=== PATIENT | female | born 1970 | race Hispanic/Latino ===

== ENCOUNTER 2023-08-25 05:57 | Day surgery (SDC) | payer MEDICAID ==
[~2023-08-25] VITALS: Ht 149.9 cm; Wt 79.7 kg
[2023-08-25] VITALS (11 sets, daily range): BP systolic 94–110; BP diastolic 55–74; PULSE 66–83; RESP 15–22
[~2023-08-25 05:57] MED LIST: ALPR2TAB2 PO; AMOX1TAB16 PO; CODE118L3 PO; DIVA500T2 PO; DULO20 PO; ESOM20CA31 PO; METH4TAB15 PO; OSEL75 PO; TYL3 PO
[2023-08-25] MEDS ORDERED: 0.9%NACL 1000ML 1,000 ML IV ONE (06:16)
[2023-08-25] MEDS ORDERED: OMEP40CA21 PO (06:57)
[2023-08-25] MEDS ORDERED: PROPOFOL 10 MG/ML 20ML VIAL IV ONE (08:19)
[2023-08-25] MEDS ORDERED: ONDANSETRON 4MG INJ ONE (09:01)
== END 2023-08-25 10:00 | disposition home or self-care (01) ==
LOC: DAH 05:57 → ENDO 05:57 → EDSTATUS 15:45
PROVIDERS: ATTEND Internal Medicine
DX: K59.00 Constipation, unspecified (principal); R10.13 Epigastric pain; R14.0 Abdominal distension (gaseous); K57.30 Diverticulosis of large intestine without perforation or abscess without bleeding; K64.1 Second degree hemorrhoids; K64.4 Residual hemorrhoidal skin tags; K92.1 Melena; K44.9 Diaphragmatic hernia without obstruction or gangrene; K22.2 Esophageal obstruction; K31.89 Other diseases of stomach and duodenum; F17.200 Nicotine dependence, unspecified, uncomplicated; F41.9 Anxiety disorder, unspecified; F32.A Depression, unspecified; E78.5 Hyperlipidemia, unspecified; Z79.899 Other long term (current) drug therapy; Z79.01 Long term (current) use of anticoagulants; Z90.710 Acquired absence of both cervix and uterus; Z90.49 Acquired absence of other specified parts of digestive tract
CPT/HCPCS: 43239; 45378; J7030 ×3; J3490; J2405; A4620 ×2; A4215 ×4; A4223 ×2; A7002 ×2; A4222 ×2; A4221 ×2; A4663 ×2; A4216 ×2; A4606 ×2; J2704

== ENCOUNTER 2023-12-21 13:15 | Emergency (ER) | payer MEDICAID ==
[~2023-12-21] VITALS: Ht 152.4 cm; Wt 77.1 kg
[~2023-12-21 13:15] MED LIST changes: -AMOX1TAB16 PO; -CODE118L3 PO; -DIVA500T2 PO; -DULO20 PO; -ESOM20CA31 PO; -METH4TAB15 PO; +OMEP40CA21 PO; -OSEL75 PO; -TYL3 PO
[2023-12-21] MEDS: ONDANSETRON ODT 4MG TAB SL ONE (15:28)
[2023-12-21] MEDS: ACETAMINOPHEN WITH CODEINE 1 TAB TAB PO ONE (15:28)
[2023-12-21 15:33] VITALS: BP 154/82; PULSE 85; RESP 16; O2SAT 97
== END 2023-12-21 15:39 | disposition home or self-care (01) ==
LOC: EDH 13:15
DX: S00.03XA Contusion of scalp, initial encounter (principal); E78.00 Pure hypercholesterolemia, unspecified; Z90.49 Acquired absence of other specified parts of digestive tract; Z79.899 Other long term (current) drug therapy; Z90.710 Acquired absence of both cervix and uterus; Z98.890 Other specified postprocedural states; W01.0XXA Fall on same level from slipping, tripping and stumbling without subsequent striking against object, initial encounter; Y93.89 Activity, other specified; Y92.89 Other specified places as the place of occurrence of the external cause; Y99.8 Other external cause status
CPT/HCPCS: 70450

== ENCOUNTER 2024-12-18 13:15 | Emergency (ER) | payer MEDICAID ==
[~2024-12-18] VITALS: Ht 149.9 cm; Wt 68.9 kg
[2024-12-18] MEDS: ORPHENADRINE 60MG/2ML IM ONE (14:54)
[2024-12-18] MEDS: ketOROlac 15MG/ML VIAL (15MG/ML) IM ONE (14:54)
--- NOTE | 2024-12-18 15:03 | EKG ---
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
--- NOTE | 2024-12-18 15:27 | HMCIMG ---
RIBS UNI RT W PA CHEST 3+ VWS REASON: FALL. COMPARISON: None TECHNIQUE: Frontal projection of the chest was obtained. 4 images of the right ribs were obtained. FINDINGS: No acute pulmonary infiltrates is seen. The heart is borderline in size. Postcholecystectomy changes are seen. No acute displaced fracture is seen. Costal cartilage calcifications are seen. Degenerative changes are seen. IMPRESSION: Findings as described above.
--- NOTE | 2024-12-18 15:36 | ERN ---
General Chief Complaint: Rib Pain Stated Complaint: RT RIB PAIN Time Seen by MD: 13:18 Source: patient History of Present Illness Initial Comments PATIENT IS A 54-YEAR-OLD FEMALE COMING IN AFTER SHE FELL DOWN AND HIT HERSELF IN HIS RIGHT SIDE OF THE CHEST REGION. SHE STATES THAT SHE HAS BEEN HAVING RIGHT BREAST AND RIGHT CHEST TENDERNESS ON PALPATION INCREASES WITH MOVEMENT. Allergies: Coded Allergies: No Known Allergies (Unverified Allergy, Unknown, 11/08/16) Home Meds Reported Medications Omeprazole (Omeprazole) 40 Mg Capsule.dr, 40 MG PO DAILY, CAP 08/25/23 Alprazolam (Xanax) 2 Mg Tablet, 2 MG PO HS, TAB 07/04/17 Past Medical History Past Medical History: Bipolar, Depression, High Cholesterol Past Surgical History: Hysterectomy, Cholecystectomy Social History Social History: Negative ROS Dictation CONSTITUTIONAL: NO CHILLS, NO FEVER, NO WEAKNESS, NO DIAPHORESIS, NO MALAISE. HEAD/FACE: NO SIGNS OF TRAUMA. EENT: NO EYE PAIN, NO BLURRED VISION, NO TEARING, NO DOUBLE VISION, NO EAR PAIN, NO EAR DISCHARGE, NO NOSE PAIN, NO NASAL CONGESTION, NO THROAT PAIN, NO THROAT SWELLING, NO MOUTH PAIN. RESPIRATORY: NO COUGH, NO ORTHOPNEA, NO SOB, NO STRIDOR, NO WHEEZING. CARDIOVASCULAR: CHEST PAIN, NO EDEMA, NO PALPITATIONS, NO SYNCOPE. GASTROINTESTINAL/ABDOMINAL: NO ABDOMINAL PAIN, NO CONSTIPATION, NO DIARRHEA, NO NAUSEA, NO VOMITING. GENITOURINARY: NO ABNORMAL DISCHARGE, NO DYSURIA, NO FREQUENT URINATION, NO HEMATURIA. NO COMPLAINTS OF PAIN IN THE GENITALS. MUSCULOSKELETAL: NO BACK PAIN, NO GOUT, NO JOINT PAIN, NO JOINT SWELLING, NO MUSCLE PAIN, NO MUSCLE STIFFNESS, NO NECK PAIN. INTEGUMENTARY: NO CHANGE IN COLOR, NO CHANGE IN HAIR/NAILS, NO DRYNESS, NO LESION, NO LUMPS, NO RASH. NEUROLOGICAL/PSYCH: NO ANXIETY, NOT DEPRESSED, NO EMOTIONAL PROBLEM, NO HEADACHE, NO NUMBNESS, NO PRE-EXISTING DEFICIT, NO HISTORY OF SEIZURES, NO TREMORS, NO WEAKNESS. HEMATOLOGIC/LYMPHATIC: NOT ANEMIC, NO HISTORY OF BLOOD CLOTS, NO APPARENT BLEEDING, NO BRUISING, GLANDS NOT SWOLLEN. ALL SYSTEMS NEGATIVE, EXCEPT NOTED. Physical Exam Physical Exam Dictation VITAL SIGNS: REVIEWED. GENERAL APPEARANCE: ALERT, ORIENTED X3, NO ACUTE DISTRESS, OBESE. HEAD AND FACE: NON-TRAUMATIC. EYES: PERRL, PINK CONJUNCTIVAS, EYELID NO TRAUMA, ANTERIOR CHAMBER CLEAR. EARS: PINNAS INTACT AND NO SIGNS OF TRAUMA OR ERYTHEMA. EAR CANALS CLEAR AND NO DISCHARGE. TMS NO ERYTHEMA. NOSE: NO DISCHARGE, NO BLEEDING. OROPHARYNX: MOUTH NORMAL, TEETH NO CARIES, TONGUE PINK. PHARYNX CLEAR, NO ERYTHEMA. TONSILS NO EXUDATES, NO ABSCESSES NOTED. MUCOUS MEMBRANE MOIST. NECK: SUPPLE, NON-TENDER, NO THYROMEGALY, NO MASSES, NO JVD, NO BRUITS. BREAST: DEFERRED. CHEST: TENDERNESS, NO CREPITUS, NO PARADOXICAL MOVEMENT, NO RETRACTIONS. LUNGS: CLEAR, WELL-VENTILATED, SYMMETRIC, NO RALES, NO WHEEZING, NO RHONCHI, NO STRIDOR, GOOD BREATH SOUNDS BILATERALLY. HEART: REGULAR RATE, REGULAR RHYTHM, NO MURMUR, NO GALLOPS. VASCULAR: NO PERIPHERAL EDEMA. ABDOMEN: SOFT, POSITIVE BOWEL SOUNDS, NONDISTENDED, NO GUARDING, NONTENDER, NO REBOUND, NO MASSES NO HEPATOMEGALY, NO SPLENOMEGALY, NO ORDAZ'S SIGN, NO HERNIAS. RECTAL: DEFERRED. GENITAL: DEFERRED. NEUROLOGICAL: NORMAL SPEECH, GROSS MOTOR FUNCTION INTACT, GROSS SENSORY FUNCTION INTACT. MUSCULOSKELETAL: NECK NONTENDER, FULL RANGE OF MOTION, BACK NONTENDER, FULL RANGE OF MOTION. EXTREMITIES: NONTENDER, FULL RANGE OF MOTION. SKIN: COLOR PINK, DRY, NO TURGOR, NO RASH, NO LACERATIONS, NO ABRASIONS, NO CONTUSIONS. LYMPHATICS: DEFERRED. Results Laboratory and Microbiology Labs Reviewed?: Yes EKG/XRAY/US/CT/MRI EKG Comment 12/18/2024 TIME 3:01 P.M. VENTRICULAR RATE 55 SINUS RHYTHM [address] WAVE ELEVATION OR DEPRESSION X-RAY Comment [place] [address] [place] [id number] IMAGING REPORT Signed PATIENT: MATTHIEU SPENCE MR#: [id number] : 1970 SEX: F AGE: 54 LOCATION: [facility] ORDER 06 STATUS: REG ER REPORT#: [id number] SERVICE 05 REASON: FALL ORDERING PHYSICIAN: TD VELEZ MD PROCEDURE: RIB RT W C - RIBS UNI RT W PA CHEST 3+ VWS RIBS UNI RT W PA CHEST 3+ VWS REASON: FALL. COMPARISON: None TECHNIQUE: Frontal projection of the chest was obtained. 4 images of the right ribs were obtained. FINDINGS: No acute pulmonary infiltrates is seen. The heart is borderline in size. Postcholecystectomy changes are seen. No acute displaced fracture is seen. Costal cartilage calcifications are seen. Degenerative changes are seen. IMPRESSION: Findings as described above. DICTATED BY: GE MEYER MD DATE: 12/18/241519 ELECTRONICALLY SIGNED BY: GE MEYER MD DATE: 12/18/24 152 [facility] MDM: DIFFERENTIAL DIAGNOSIS: FALL, CHEST WALL PAIN, RIB FRACTURE, RATIONALE: TESTS CONSIDERED AND ORDERED SECONDARY TO SHARED DECISION MAKING INCLUDE: PREVIOUS OUTSIDE RECORDS REVIEWED: OLD ER VISITS. PATIENT IS A 54-YEAR-OLD FEMALE COMING IN TO BE EVALUATED AFTER SHE HAD A FALL. X-RAY DID NOT DISCLOSE ACUTE FINDINGS EKG DID NOT ASK THE STAND HE WAS EITHER. PATIENT WILL BE DISCHARGED IN STABLE CONDITION DIAGNOSIS AND CHEST WALL PAIN. ED Course Orders Procedure Category Date Status Time Ribs Uni Rt W Pa RAD 12/18/24 Resulted Chest 3+ Vws 14:06 Orphenadrine Citrate PHA 12/18/24 Complete (Norflex) 14:30 Ketorolac PHA 12/18/24 Complete Tromethamine 15mg/Ml 14:30 12 Lead Ekg Tracing- EKG 12/18/24 Complete Technical 14:07 Current Medications Medications (Trade) Dose Ordered Sig/Victor [place] Route PRN Reason Start Time Stop Time Status Last Admin Dose Admin Ketorolac Tromethamine (toRADol) 15 mg ONCE ONCE IM 12/18/24 14:30 12/18/24 14:31 DC 12/18/24 14:54 Orphenadrine Citrate (Norflex) 60 mg ONCE ONCE IM 12/18/24 14:30 12/18/24 14:31 DC 12/18/24 14:54 Vital Signs Date Time Temp Pulse Resp B/P (MAP) Pulse Ox O2 Delivery O2 Flow Rate FiO2 12/18/24 13:16 98.6 75 20 124/74 99 Room Air DX & DISP Disposition: Discharge Departure Impression: Primary Impression: Fall Additional Impression: Chest wall pain Condition: Stable Scripts Naproxen (Naproxen) 375 Mg Tablet. 375 MG PO BID for 7 Days, #14 TAB Prov: TD VELEZ MD 12/18/24 Additional Instructions: FOLLOW-UP WITH PRIMARY CARE PROVIDER IN 1 TO 2 DAYS. TAKE MEDICATIONS DIRECTED HERE IN THE EMERGENCY ROOM. OKAY TO CONTINUE HOME MEDICATIONS UNLESS OTHERWISE DISCUSSED DURING YOUR VISIT IN THE EMERGENCY ROOM TODAY. RETURN TO YOUR NEAREST EMERGENCY ROOM IF SYMPTOMS WORSEN OR IF THERE IS NO IMPROVEMENT. CALL 911 IF YOU NEED IMMEDIATE ASSISTANCE. TAKE TYLENOL [id number] NEEDED AND IF NO CONTRAINDICATIONS ARE PRESENT. INCREASE ORAL HYDRATION. A WOUND CULTURE OR URINE CULTURE WAS ORDERED HERE IN THE EMERGENCY ROOM DEPARTMENT PLEASE FOLLOW-UP WITH PRIMARY CARE PROVIDER AND ADVISE THEM TO GET REPEAT PORTS FROM OUR FACILITY. IF YOU HAD ANY MARISSA WRAP/SPLINTS THAT WERE APPLIED HERE, PLEASE DO NOT REMOVE THEM UNTIL YOU SEE YOUR PRIMARY CARE OR SPECIALTY. REFERRALS: Referrals: ЕКАТЕРИНА CONTI MD (PCP) Time of Disposition: 15:37 TD VELEZ MD Dec 18, 2024 15:36
[2024-12-18] MEDS ORDERED: NAPR-1505 PO (15:38)
[2024-12-18 15:46] VITALS: BP 121/73; PULSE 70; RESP 20; TEMP 98.6; O2SAT 99
== END 2024-12-18 15:50 | disposition home or self-care (01) ==
LOC: EDH 13:15
DX: R07.89 Other chest pain (principal); E78.00 Pure hypercholesterolemia, unspecified; Z79.899 Other long term (current) drug therapy; Z90.49 Acquired absence of other specified parts of digestive tract; Z90.710 Acquired absence of both cervix and uterus
CPT/HCPCS: 99284; 71101; 96372 ×2; 93005; J1885; J2360